=== PATIENT | male | born 1955 | race Two or more races ===

== ENCOUNTER 2021-11-25 23:23 | Emergency (ER) | payer OTHER ==
[~2021-11-25] VITALS: Ht 170.2 cm; Wt 72.6 kg
== END 2021-11-26 05:25 | disposition home or self-care (01) ==
LOC: ER 23:23
DX: F10.929 Alcohol use, unspecified with intoxication, unspecified (principal); R42 Dizziness and giddiness

== ENCOUNTER 2022-04-14 11:33 | Outpatient (CLI) | payer OTHER | END 2022-04-14 11:43 | disposition home or self-care (01) | LOC: RAD 11:33 | PROVIDERS: ATTEND Physical Medicine & Rehabilitation | DX: M17.11 Unilateral primary osteoarthritis, right knee (principal); M54.50 Low back pain, unspecified; M16.12 Unilateral primary osteoarthritis, left hip; R05.1 Acute cough ==

== ENCOUNTER 2022-05-11 20:33 | Emergency (ER) | payer OTHER ==
[~2022-05-11] VITALS: Ht 170.2 cm; Wt 68.0 kg
== END 2022-05-12 03:37 | disposition left against medical advice (07) ==
LOC: ER 20:33
DX: R19.7 Diarrhea, unspecified (principal); R10.9 Unspecified abdominal pain; R11.2 Nausea with vomiting, unspecified

== ENCOUNTER 2022-05-18 02:51 | Emergency (ER) | payer OTHER ==
[~2022-05-18] VITALS: Ht 167.6 cm; Wt 68.0 kg
== END 2022-05-18 11:15 | disposition left against medical advice (07) ==
LOC: ER 02:51
DX: M79.89 Other specified soft tissue disorders (principal)

== ENCOUNTER 2022-05-18 15:46 | Inpatient (IN) | payer OTHER ==
[~2022-05-18] VITALS: Ht 170.2 cm; Wt 74.8 kg
--- NOTE | 2022-05-18 16:57 | NUR ---
SE RECIBE PTE ALERTA Y ORIENTADO REFIERE QUE ESTUVO AQUI ANOCHE, REFIERE DOLOR NE LOS PIES SE OBSERVAN HINCHADO Y REFIERE DOLOR ESPALDA. SE TOAMN VITALES Y SE OLGA EN KAYY DE ESPERA.
== END 2022-05-20 18:59 | disposition left against medical advice (07) | DRG 811 ==
LOC: ER 15:46 → MEDJ 21:30 → SEC-K 21:30 → MEDJ 23:20
PROVIDERS: ADMIT Internal Medicine; ATTEND Internal Medicine
PROC: 30233N0 Transfusion of Autologous Red Blood Cells into Peripheral Vein, Percutaneous Approach (ICD-10-PCS; principal; 2022-05-19)
DX: D50.0 Iron deficiency anemia secondary to blood loss (chronic) (principal); I50.33 Acute on chronic diastolic (congestive) heart failure; F10.20 Alcohol dependence, uncomplicated; I11.0 Hypertensive heart disease with heart failure; F17.200 Nicotine dependence, unspecified, uncomplicated

== ENCOUNTER 2023-11-23 12:21 | Inpatient (IN) | payer OTHER ==
[~2023-11-23] VITALS: Ht 177.8 cm; Wt 72.6 kg
--- NOTE | 2023-11-23 12:34 | NUR ---
SE RECIBE PTE ALERTA Y ORIENTADO X3 EN AMBULANCIA EL MISMO FUE ENVIADO POR LA IPA [phone] CON LABORATORIO HEMOGLOBINA EN 5.6. SE MIDEN S/V Y SE UBICA.
[2023-11-23] MEDS ORDERED: FAMOtidine 10 MG/ML (4ML VIAL) IV STA (13:28)
[2023-11-23] MEDS ORDERED: METOCLOPRAMIDE HCL 5 MG/ML VIAL IV STA (13:29)
[2023-11-23] MEDS ORDERED: RINGERS SOLUTION,LACTATED 1,000 ML IV STA (13:33)
--- NOTE | 2023-11-23 14:36 | NUR ---
RN TEJAL EDUCA A PTE OSBRE TX A RECIBIR EN EL AREA REALIZA MUESTRAS ELAN ORDEN MEDICA Y LAS ENVIA DE FORMA INMEDIATA A LAB. SE CANALIZA PTE Y OLGA DOS VENOPUNCIONES POR PRBC EN ORDEN MEDICA. SE COLOCA MEDICACION ELAN ORDEN MEDICA LOS CUALES TOLERA EN TOTALIDAD. SE REALIZA EKG Y SE PRESENTA A DR CALLAWAY. SE OLGA PTE EN KENNY EN ESPERA DE RESULTADOS Y SEGUIMIENTO DE TX.
[2023-11-23 14:44] LABS: URINE APPEARANCE Clear; URINE BILIRRUBIN Negative (NEGATIVE); URINE BLOOD Negative; URINE COLOR Yellow; URINE GLUCOSE Negative (NEGATIVE); URINE LEUKOCYTE Negative; URINE NITRATE Negative; URINE PROTEIN 30 (NEGATIVE); URINE UROBILINOGEN 0.2 E.U./dl
[2023-11-23 14:46] LABS: URINE EPITHELIAL CELLS 3.3 uL (0.0-38.8); URINE WBC 2.9 uL (0.0-23.2)
[2023-11-23 14:53] LABS: MEAN CELL VOLUME 85.2 fL (80.0-100.00); MEAN CORPUSCULAR HGB CONC 33.3 g/dl (32.0-36.0); PLATELET COUNT 578 K/uL (150-450); RED BLOOD COUNT 1.79 M/uL (4.00-6.00)
[2023-11-23 14:54] LABS: HEMATOCRIT 15.2 % (39.0-48.0); MEAN CORPUSCULAR HEMOGLOBIN 28.4 pg (27.00-32.0)
[2023-11-23 14:56] LABS: HEMOGLOBIN 5.1 g/dL (13-16.00)
--- NOTE | 2023-11-23 15:06 | NUR ---
SE KIRBY TUBOS PILITOS Y SE LLEVAN A LABORATORIO. SE REQUISA 3 UNIDADES DE PRBC. PTE FIRMA CONSENTIMIENTO Y SE COLOCA EN RECORD DE PTE.
[2023-11-23 15:11] LABS: INR 0.98; PARTIAL THROMBOPLASTIN TIME 28.7 SECONDS (22.0-34.0); PROTHROMBIN TIME 10.3 SECONDS (9.0-11.5)
[2023-11-23 15:17] LABS: ALBUMIN 3.1 gm/dL (3.4-5.0); ALKALINE PHOSPHATASE 51 U/L (50-136); ALT/SGPT 11 U/L (12-78); AMYLASE 98 U/L (25-115); ANION GAP 10 (10.0-20.0); AST/SGOT 12 U/L (15-37); BILIRUBIN TOTAL 0.12 mg/dL (0.3-1.2); BILIRUBIN,CONJUGATED < 0.10 mg/dL (0.0-0.2); BILIRUBIN,UNCONJUGATED 0.02 mg/dL (0.0-0.6); BLOOD UREA NITROGEN 35 mg/dL (7-18); BUN CREA RATIO 21 (7.0-25.0); CALCIUM 9.2 mg/dL (8.5-10.1); CARBON DIOXIDE 18 mEq/L (21-32); CHLORIDE 113 mmol/L (98-107); CREATININE SERUM 1.67 mg/dL (0.70-1.30); GFR 41.37; GLUCOSE FASTING 87 mg/dL (65-100); LIPASE 84 U/L (13-75); OSMOLALITY SERUM 283 MOSM/KG (275-295); POTASSIUM 3.22 mEq/L (3.5-5.1); SODIUM 138 mmol/L (136-145); TOTAL PROTEIN 7.8 gm/dL (6.4-8.2); URINE RBC 1.3 uL (0.0-20.8)
--- NOTE | 2023-11-23 15:24 | NUR ---
SE RECIBE PACIENTE ALERTA Y ORIENTADO X3 AL MOMENTO EN KENNY CON BARANDAS ELEVADAS Y EN POSICION SEMI SENTADA. AL MOMENTO PTE SE ENCUENTRA CANALIZADO CON ANGIOS #20 EN ELSAO MICHAEL. AL MOMENTO PTE EN ESPERA DE CONSULTA.
[2023-11-23] MEDS ORDERED: 0.9 % SODIUM CHLORIDE 1,000 ML IV SCH (19:15)
[2023-11-23] MEDS ORDERED: PANTOPRAZOLE SODIUM 40 MG/VIAL VIAL IV SCH (19:19)
[2023-11-23] MEDS ORDERED: POTASSIUM CHLORIDE/NACL 0.9% 1,000 ML IV NR (19:30)
[2023-11-23] MEDS ORDERED: ONDANSETRON HCL 4 MG in 0.9 % SODIUM CHLORIDE 50 ML IV PRN (19:30)
[2023-11-23] MEDS ORDERED: ACETAMINOPHEN 500 MG GEL..CAP PO PRN (19:30)
[2023-11-23 21:19] LABS: MAGNESIUM 1.5 mg/dL (1.8-2.4); PHOSPHOROUS 3.4 mg/dL (2.5-4.9)
[2023-11-23 21:25] LABS: C-REACTIVE PROTEIN 2.53 MG/DL (0.00-0.29)
[2023-11-24] MEDS ORDERED: LACTULOSE 20 G/30 ML BLIST.PACK PO STA (19:34)
[2023-11-25 02:23] LABS: HEMATOCRIT 24.3 % (39.0-48.0); MEAN CELL VOLUME 86.8 fL (80.0-100.00); MEAN CORPUSCULAR HGB CONC 33.4 g/dl (32.0-36.0); PLATELET COUNT 453 K/uL (150-450); RED BLOOD COUNT 2.81 M/uL (4.00-6.00); RED CELL DISTRIBUTION WIDTH 16.4 % (11.5-14.5)
[2023-11-25 02:36] LABS: CALCIUM 8.1 mg/dL (8.5-10.1); CREATININE SERUM 0.92 mg/dL (0.70-1.30); GFR 82.31; POTASSIUM 3.22 mEq/L (3.5-5.1)
[2023-11-25 02:41] LABS: MEAN CORPUSCULAR HEMOGLOBIN 28.8 pg (27.00-32.0)
[2023-11-25 02:42] LABS: HEMOGLOBIN 8.1 g/dL (13-16.00)
[2023-11-26 10:46] LABS: HEMATOCRIT 30.1 % (39.0-48.0); HEMOGLOBIN 10.4 g/dL (13-16.00); MEAN CELL VOLUME 84.4 fL (80.0-100.00); MEAN CORPUSCULAR HGB CONC 34.4 g/dl (32.0-36.0); PLATELET COUNT 480 K/uL (150-450); RED BLOOD COUNT 3.57 M/uL (4.00-6.00); RED CELL DISTRIBUTION WIDTH 17.9 % (11.5-14.5)
== END 2023-11-26 16:06 | disposition home or self-care (01) | DRG 378 ==
LOC: ER 12:21 → SEC-K 19:44 → MEDJ 11-24 12:42
PROVIDERS: General Practice; Internal Medicine; ADMIT Internal Medicine; ATTEND Internal Medicine
PROC: BW21YZZ Computerized Tomography (CT Scan) of Abdomen and Pelvis using Other Contrast (ICD-10-PCS; principal; 2023-11-23)
PROC: 30233N1 Transfusion of Nonautologous Red Blood Cells into Peripheral Vein, Percutaneous Approach (ICD-10-PCS; 2023-11-23)
DX: K57.31 Diverticulosis of large intestine without perforation or abscess with bleeding (principal); E46 Unspecified protein-calorie malnutrition; N17.9 Acute kidney failure, unspecified; D64.9 Anemia, unspecified; F10.20 Alcohol dependence, uncomplicated; F17.210 Nicotine dependence, cigarettes, uncomplicated; Z79.1 Long term (current) use of non-steroidal anti-inflammatories (NSAID)